=== PATIENT | female | born 1930 | race Caucasian/White ===

== ENCOUNTER → 2017-09-06 | Outpatient (CLI) | payer MEDICARE, OTHER ==
[~2017-09-06] MED LIST: LEVO75TA5 PO; LISI5TAB7 PO; MECLIZINE
== END | disposition home or self-care (01) ==
LOC: STAR 14:19
PROVIDERS: ATTEND Surgery
DX: Z01.818 Encounter for other preprocedural examination (principal); R94.31 Abnormal electrocardiogram [ECG] [EKG]
CPT/HCPCS: 93005

== ENCOUNTER 2017-09-13 08:50 | Day surgery (SDC) | payer MEDICARE, OTHER ==
[~2017-09-13] VITALS: Ht 165.1 cm; Wt 59.9 kg
[~2017-09-13 08:50] MED LIST changes: +BUPIVACAINE/PF 0.25% ONE; -MECLIZINE; +MECLIZINE PO
[2017-09-13 09:21] VITALS: BP 157/82
[2017-09-13] MEDS ORDERED: LACTATED RINGERS 1,000 ML IV SCH (09:26)
[2017-09-13] MEDS ORDERED: LIDOCAINE-MPF 1%, 2ML ONE (09:28)
[2017-09-13] MEDS ORDERED: LIDOCAINE-MPF 1%, 2ML INFIL ONE (09:30)
[2017-09-13] MEDS ORDERED: MIDAZOLAM 1 MG/ML, 2ML ONE (12:15)
[2017-09-13] MEDS ORDERED: FENTANYL PF 250 MCG/5ML ONE (12:16)
[2017-09-13] MEDS ORDERED: LIDOCAINE 4%, 4 ML SYR/CANN TP ONE ×3 (12:17)
[2017-09-13] MEDS ORDERED: PROPOFOL 10 MG/ML, 20ML ONE (12:17)
[2017-09-13] MEDS ORDERED: CEFAZOLIN 1,000 MG ONE (12:17)
[2017-09-13] MEDS ORDERED: ONDANSETRON 2MG/ML, 2ML ONE (12:17)
[2017-09-13] MEDS ORDERED: GLYCOPYRROLATE 0.2MG/1ML, 5ML ONE (12:17)
[2017-09-13] MEDS ORDERED: DEXAMETHASONE 4 MG/ML, 1ML ONE (12:17)
[2017-09-13] MEDS ORDERED: NEOSTIGMINE 1 MG/ML, 10ML ONE (12:17)
[2017-09-13] MEDS ORDERED: SUCCINYLCHOLINE 20 MG/ML, 10ML ONE (12:17)
[2017-09-13] MEDS ORDERED: FENTANYL PF 100 MCG/2ML IV PRN (13:00)
[2017-09-13] MEDS ORDERED: HYDROcodone/APAP 7.5-325MG/15ML UDC PO PRN (13:00)
[2017-09-13] MEDS ORDERED: hydrALAzine 20 MG/ML, 1ML IV PRN (13:00)
[2017-09-13] MEDS ORDERED: morphine SULFATE 10 MG/ML, 1ML IV PRN (13:00)
[2017-09-13] MEDS ORDERED: ACETAMINOPHEN 325 MG TABLET PO PRN (13:00)
[2017-09-13] MEDS ORDERED: ONDANSETRON 2MG/ML, 2ML IVPush PRN (13:00)
[2017-09-13] MEDS ORDERED: OXYcodone 5 MG/5 ML ORAL.SOL UDC PO PRN (13:00)
[2017-09-13] MEDS ORDERED: LABETALOL 5MG/ML, 20ML IV PRN (13:00)
[2017-09-13] MEDS ORDERED: NALOXONE 0.4 MG/ML, 1ML ONE (13:22)
[2017-09-13] MEDS ORDERED: LABETALOL 5MG/ML, 20ML ONE (14:10)
[2017-09-13] MEDS ORDERED: HYDROcodone/APAP 7.5-325MG/15ML UDC ONE (14:14)
== END 2017-09-13 16:30 | disposition home or self-care (01) ==
LOC: OUT 08:50
PROVIDERS: ATTEND Surgery
DX: C48.1 Malignant neoplasm of specified parts of peritoneum (principal); K80.20 Calculus of gallbladder without cholecystitis without obstruction; C26.0 Malignant neoplasm of intestinal tract, part unspecified; Z98.890 Other specified postprocedural states; Z90.710 Acquired absence of both cervix and uterus; E89.0 Postprocedural hypothyroidism
CPT/HCPCS: 49321; 88305; J0330; J0690; J1100; J2310; J2405; J2704; J2710; J3010; J3490; J7120; J2250